=== PATIENT | female | born 1980 | race Caucasian/White ===

== ENCOUNTER 2016-09-15 01:04 | Inpatient (IN) | payer OTHER ==
[~2016-09-15] VITALS: Ht 177.8 cm; Wt 90.5 kg
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
--- NOTE | ~2016-09-15 | H ---
[facility] [place] [address] HISTORY AND PHYSICAL Name: ELIA JEFFERSON Room #: 443-P [facility] IN M.R.#: [id number] Admission: 09/15/16 Attend Phys: Zachary Quiroga MD Discharge: 09/23/16 Date of : 82 Report #: [id number] THIS REPORT FOR: //name// CC: Zachary Keith ATTENDING PHYSICIAN: Patricia Georges MD PRIMARY CARE PHYSICIAN: Olivia Keith MD CHIEF COMPLAINT: Epigastric abdominal pain, nausea, vomiting, diarrhea. HISTORY OF PRESENT ILLNESS: The patient is a 36-year-old female with a history of recurrent pancreatitis. She has been admitted here at [facility] at least 8 times within the last year as well as multiple other ER visits. She was just seen in the ER 2 days ago for some mild abdominal pain, but her lipase was normal, so she was discharged back to home. She does have a history of Crohn's, which is recently diagnosed as well. She does drink alcohol, she says she does not drink every day. She is fully aware that her pancreatitis is caused by alcohol. She recently lost her job, so she says she had been more stressed out as well as this new Crohn's diagnosis. She is now trying to deal with getting her COBRA, so she can start her Crohn's medication. She states that on Lilia, which was 3 days ago, she really did not feel that well and was having some crampy abdominal pain, but her pain significantly got worse. She did drink 2 glasses of wine on . The following night, she had a tall neck drink with whiskey and the following morning, which was Tuesday, she started having nausea, vomiting and worsening pain. She says the pain actually starts in her mid back and radiates around to her epigastric area. This is similar to her prior episodes of pancreatitis as well. She also started having multiple episodes of loose stools. She tried to drink water, but kept vomiting throughout the day; therefore, she came to the ER to be evaluated again. She has noticed that every time she has been admitted for pancreatitis, it is after eating shellfish. She has not had any further vomiting since arrival. She did receive multiple doses of Dilaudid in the ER and is now resting more comfortably, although she is rather anxious. PAST MEDICAL HISTORY: Pancreatitis, hypertension, anxiety. PAST SURGICAL HISTORY: Cholecystectomy, tonsillectomy, . ALLERGIES: TYLENOL WITH CODEINE, PENICILLIN, and TRAMADOL. HOME MEDICATIONS: Hydrocodone 5/325 one tab q. 6 hours p.r.n., Xanax 0.5 mg q. 8 hours p.r.n., nicotine patch daily, and Colace 100 mg daily, Pancreaze 1 capsule daily. SOCIAL HISTORY: The patient smokes half pack of cigarettes per day. She has [address] [address] HISTORY AND PHYSICAL Name: ELIA JEFFERSON Room #: 443-P [facility] IN M.R.#: [id number] Admission: 09/15/16 Attend Phys: Zachary Quiroga MD Discharge: 09/23/16 Date of : 84 Report #: [id number] been smoking for at least 16 years. She does smoke marijuana occasionally and she does report drinking every 2-3 days. Her last drink was 2 days ago in which she had tall glass of mixed drink of whiskey. She has also had beer. 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 She does live alone. FAMILY HISTORY: Negative for any GI problems. REVIEW OF SYSTEMS: A 12-point review of systems was reviewed with the patient, otherwise negative unless stated in the HPI. PHYSICAL EXAMINATION: GENERAL: The patient is an alert female in no acute distress. VITAL SIGNS: Temperature is 36.4, heart rate is 91, respirations 24, blood pressure 154/106, oxygen 100% on room air. HEENT: PERRLA. Sclerae is nonicteric. Oral mucosa is pink and dry. NECK: Supple, no JVD noted. CARDIOVASCULAR: Normal S1, S2. No murmurs, rubs or gallops. RESPIRATORY: Breath sounds are clear bilaterally. No wheezing or rhonchi. Breathing is nonlabored. ABDOMEN: Round and soft. She does have epigastric abdominal tenderness as well as positive bowel sounds. VASCULAR: She is moving all extremities equally. No focal neuro deficits noted. NEUROLOGIC: The patient is alert and oriented times 3. She is answering questions appropriately and follows commands ____ ambulate to the bathroom and she was steady on her feet. No focal weakness noted. SKIN: Intact. No rash or wounds. PSYCHIATRIC: The patient is somewhat anxious and restless in moving around, rubbing her stomach in pain. LABORATORY DATA AND DIAGNOSTICS: WBC is 14.9, hemoglobin 14.8 and platelets 356, alcohol level is less than 10. Sodium 140, potassium 3.9, BUN 13, creatinine 0.9, glucose is 157. ALT 87, ALT 137, and lipase is 1938. ASSESSMENT AND PLAN: 1. Recurrent pancreatitis, again alcohol induced. She was encouraged again to stop drinking. 2. We will add IV fluids, continue antiemetics and pain control. We will keep her n.p.o. and repeat lipase in the morning. 3. Hypertension, blood pressure is stable. We do need to hold her blood pressure medications while n.p.o. Continue to monitor. 4. Recent diagnosis of Crohn's disease. The patient does not know her current medications for Crohn's that she is supposed to start, but has not due to losing her job and insurance. She plans to follow with Dr. Davis with Gastroenterology, outpatient. [facility] [address] [place] [address] HISTORY AND PHYSICAL Name: ELIA JEFFERSON Room #: 443-P [facility] IN .R.#: [id number] Admission: 09/15/16 Attend Phys: Zachary Quiroga MD Discharge: 09/23/16 Date of : 82 Report #: [id number] 5. Alcohol abuse. The patient was encouraged to quit drinking. She will be monitored for any signs of alcohol withdrawal, although she says she does not drink daily. 6. Tobacco abuse. The patient has been advised to quit, add a nicotine patch. 7. Deep venous thrombosis prophylaxis, place sequential compression devices. 8. Uncomplicated urinary tract infection. Since she does have some mild leukocytosis, we will go ahead and send urine for culture and start Rocephin. We will continue to follow the patient closely throughout the hospitalization and make changes based on clinical status. <ELECTRONICALLY SIGNED> By: JACKIE Briseno 09/24/16 0646 0723 2 JACKIE Briseno /nt
[~2016-09-15 01:04] MED LIST: AMBIEN 5 MG TABL5 M1 PO; B-COMPLEX PLUS1 EACH PO; CENTRUM SILVER1 EAC2; CLARITIN10 MG PO; COLACE 100 MG100 MG PO; CREON 10 CAPSUL1 CA1 PO; FLAGYL500 MG PO; GARLIC OIL1 EACH PO; HYDROCODON-ACE1 EAC7 PO; HYDROCODONE-AP1 EAC6 PO; METOPROLOL TART25 MG PO; NEURONTIN600 MG PO; NICOTINE TRANSD21 M1 TRANSDERM; NORCO 5-325 TA1 EACH PO; ONDANSETRON HCL4 M2 PO; PANTOPRAZOLE SO40 M1 PO; PERCOCET PO; PHENERGAN 25 MG25 M1 PO; PREDNISONE 20 M20 MG PO; PROBIOTIC1 EAC1 PO; PROZAC 20 MG20 MG PO; TOPROL XL25 MG PO; UNICOMPLEX M TA1 TA1 PO; VITAMIN D1000 UNI1 PO; VITAMINC500 PO; XANAX 0.5 MG0.5 MG PO; ZENPEP DR 10,01 EACH PO; ZOFRAN ODT4 MG PO
[2016-09-15 01:05] VITALS: BP 154/106
[2016-09-15] MEDS ORDERED: HYDROCODONE-APA1 TA1 PO (01:26)
[2016-09-15 01:47] LABS: ABSOLUTE NEUTROPHILS 8.9 thou/uL (1.4-8.2); BASOPHILS 0.5 % (0.0-2.0); EOSINOPHILS 1.6 % (0.0-3.0); HEMATOCRIT 44.3 % (37.0-47.0); HEMOGLOBIN 14.8 gm/dL (12.0-15.0); LYMPHOCYTES 29.3 % (24.0-44.0); MANUAL DIFF NO; MCHC 33.3 % (28.0-37.0); MCV 95.9 fL (80.0-100.0); PLATELET COUNT 356 thou/uL (150-400); POLYS 59.6 % (36.0-66.0); RBC 4.62 mil/uL (4.20-5.00); RDW 15.5 % (10.5-14.5); WBC 14.9 thou/uL (4.0-11.0)
[2016-09-15 02:05] LABS: CALCIUM 8.3 mg/dL (8.5-10.1); CREATININE 0.9 mg/dL (0.6-1.3); POTASSIUM 3.9 mmol/L (3.5-5.1)
[2016-09-15 02:10] LABS: ALBUMIN 3.6 g/dL (3.4-5.0); TOTAL BILIRUBIN 0.7 mg/dL (<0.1-1.0); TOTAL PROTEIN 6.5 g/dL (6.4-8.2)
[2016-09-15 02:42] VITALS: BP 153/95
[2016-09-15 04:12] LABS: URINE BILIRUBIN NEGATIVE (Negative); URINE BLOOD 3+ (Negative); URINE COLOR BROWN; URINE GLUCOSE-RANDOM* NEGATIVE (Negative); URINE KETONES NEGATIVE (Negative); URINE LEUKOCYTES-REFLEX NEGATIVE (Negative); URINE PROTEIN (DIPSTICK) 2+ (Negative); URINE SPECIFIC GRAVITY >= 1.030 (1.003-1.035)
[2016-09-15 04:18] LABS: SQUAMOUS >10 Many /LPF (0-3)
[2016-09-15 04:19] LABS: URINE RBC >20 Many /HPF (0-2)
[2016-09-15 04:20] LABS: CASTS None Seen /LPF (None Seen); CRYSTALS None Seen /LPF (None Seen); URINE WBC-REFLEX 0-5 Rare /HPF (0-5)
[2016-09-15 06:50] VITALS: BP 130/71
[2016-09-15 08:00] VITALS: BP 167/94
[2016-09-15 16:02] VITALS: BP 168/95
[2016-09-15 19:30] VITALS: BP 173/91
[2016-09-16 04:30] VITALS: BP 178/102
[2016-09-16 06:02] LABS: HEMATOCRIT 38.3 % (37.0-47.0); MCH 32.1 pg (26.0-34.0); MCHC 32.9 % (28.0-37.0); MCV 97.4 fL (80.0-100.0); RBC 3.93 mil/uL (4.20-5.00); RDW 15.3 % (10.5-14.5)
[2016-09-16 06:05] LABS: HEMOGLOBIN 12.6 gm/dL (12.0-15.0)
[2016-09-16 06:18] LABS: CREATININE 0.7 mg/dL (0.6-1.3); POTASSIUM 3.5 mmol/L (3.5-5.1)
[2016-09-16 08:00] VITALS: BP 161/94
[2016-09-16 16:00] VITALS: BP 181/110
[2016-09-16 20:32] VITALS: BP 161/122
[2016-09-16 23:33] VITALS: BP 149/100
[2016-09-17 04:11] VITALS: BP 137/91
[2016-09-17 05:18] LABS: ABSOLUTE NEUTROPHILS 8.6 thou/uL (1.4-8.2); BASOPHILS 0.5 % (0.0-2.0); EOSINOPHILS 2.3 % (0.0-3.0); HEMATOCRIT 36.3 % (37.0-47.0); HEMOGLOBIN 12.2 gm/dL (12.0-15.0); LYMPHOCYTES 14.5 % (24.0-44.0); MCHC 33.7 % (28.0-37.0); MCV 95.2 fL (80.0-100.0); MONOCYTES 10.9 % (1.0-8.0); PLATELET COUNT 217 thou/uL (150-400); POLYS 71.8 % (36.0-66.0); RBC 3.81 mil/uL (4.20-5.00); RDW 15.3 % (10.5-14.5)
[2016-09-17 05:20] LABS: MANUAL DIFF NO
[2016-09-17 05:32] LABS: CALCIUM 8.1 mg/dL (8.5-10.1); CREATININE 0.7 mg/dL (0.6-1.3); MAGNESIUM 1.4 mg/dL (1.8-2.4); POTASSIUM 3.3 mmol/L (3.5-5.1); TOTAL BILIRUBIN 1.1 mg/dL (<0.1-1.0); TOTAL PROTEIN 5.9 g/dL (6.4-8.2)
[2016-09-17 08:36] VITALS: BP 145/103
[2016-09-17 12:25] VITALS: BP 128/85
[2016-09-17 16:00] VITALS: BP 133/80
[2016-09-17 16:20] LABS: MAGNESIUM 2.2 mg/dL (1.8-2.4); POTASSIUM 3.7 mmol/L (3.5-5.1)
[2016-09-17 19:18] VITALS: BP 136/88
[2016-09-18 06:32] LABS: ALBUMIN 2.6 g/dL (3.4-5.0); CALCIUM 8.1 mg/dL (8.5-10.1); CREATININE 0.7 mg/dL (0.6-1.3); MAGNESIUM 1.8 mg/dL (1.8-2.4); POTASSIUM 3.2 mmol/L (3.5-5.1); TOTAL BILIRUBIN 0.9 mg/dL (<0.1-1.0); TOTAL PROTEIN 5.6 g/dL (6.4-8.2)
[2016-09-18 08:00] VITALS: BP 126/63
[2016-09-18 12:00] VITALS: BP 119/66
[2016-09-18 16:00] VITALS: BP 120/75
[2016-09-18 19:56] VITALS: BP 119/70
[2016-09-19 06:34] VITALS: BP 117/74
[2016-09-19 08:00] VITALS: BP 114/71
[2016-09-19 16:00] VITALS: BP 135/88
[2016-09-19 21:58] VITALS: BP 147/101
[2016-09-20 04:27] LABS: HEMATOCRIT 29.5 % (37.0-47.0); MCH 31.8 pg (26.0-34.0); MCHC 32.9 % (28.0-37.0); MCV 96.7 fL (80.0-100.0); RBC 3.05 mil/uL (4.20-5.00); RDW 15.3 % (10.5-14.5); WBC 13.7 thou/uL (4.0-11.0)
[2016-09-20 04:38] LABS: HEMOGLOBIN 9.7 gm/dL (12.0-15.0)
[2016-09-20 04:44] LABS: CALCIUM 8.7 mg/dL (8.5-10.1); CREATININE 0.7 mg/dL (0.6-1.3); MAGNESIUM 1.7 mg/dL (1.8-2.4); POTASSIUM 3.8 mmol/L (3.5-5.1)
[2016-09-20 08:00] VITALS: BP 173/101
[2016-09-20 12:00] VITALS: BP 156/95
[2016-09-20 14:03] LABS: AMYLASE 67 U/L (25-115)
[2016-09-20 17:00] VITALS: BP 180/104
[2016-09-20 17:24] LABS: ABG SAMPLE TYPE ARTERIAL; BE(vivo) 1.1 mmol/L (-2 to +3); HCO3 24.2 mmol/L (22.0-26.0); LACTATE 0.87 mmol/L (0.5-2.0); O2(CT) 14.1 mL/dL (15.0-23.0); O2Hb 93.2 % (92.0-98.0); PCO2 32.8 mmHg (35.0-45.0); PO2 63.8 mmHg (80.0-100.0); pH 7.485 (7.360-7.450); sO2 94.1 % (92.0-98.0); tCO2 25.2 mmol/L (24.0-30.0)
[2016-09-20 17:25] LABS: STICK SITE L.RADIAL
[2016-09-20 18:22] VITALS: BP 150/92
[2016-09-20 20:10] VITALS: BP 142/93
[2016-09-20 23:20] VITALS: BP 129/79
[2016-09-21 03:20] VITALS: BP 138/85
[2016-09-21 06:10] LABS: CALCIUM 8.8 mg/dL (8.5-10.1); CREATININE 0.6 mg/dL (0.6-1.3); POTASSIUM 3.2 mmol/L (3.5-5.1)
[2016-09-21 06:14] LABS: HEMATOCRIT 33.2 % (37.0-47.0); HEMOGLOBIN 10.7 gm/dL (12.0-15.0); MCH 31.4 pg (26.0-34.0); MCHC 32.2 % (28.0-37.0); MCV 97.6 fL (80.0-100.0); RBC 3.4 mil/uL (4.20-5.00); WBC 14.7 thou/uL (4.0-11.0)
[2016-09-21 08:00] VITALS: BP 145/83
[2016-09-21 12:00] VITALS: BP 132/81
[2016-09-21 16:00] VITALS: BP 158/106
[2016-09-21 20:20] VITALS: BP 137/90
[2016-09-22 04:30] VITALS: BP 122/68
[2016-09-22 06:41] LABS: CALCIUM 8.4 mg/dL (8.5-10.1); CREATININE 0.6 mg/dL (0.6-1.3); MAGNESIUM 1.7 mg/dL (1.8-2.4); POTASSIUM 3.5 mmol/L (3.5-5.1)
[2016-09-22 07:25] VITALS: BP 141/87
[2016-09-22 11:32] VITALS: BP 137/80
[2016-09-22 15:20] VITALS: BP 127/84
[2016-09-22 19:25] VITALS: BP 147/94
[2016-09-23 03:30] VITALS: BP 150/85
[2016-09-23 07:03] LABS: HEMATOCRIT 32.3 % (37.0-47.0); HEMOGLOBIN 10.8 gm/dL (12.0-15.0); MCH 31.9 pg (26.0-34.0); MCHC 33.4 % (28.0-37.0); MCV 95.3 fL (80.0-100.0); RBC 3.39 mil/uL (4.20-5.00); RDW 15.5 % (10.5-14.5); WBC 9.9 thou/uL (4.0-11.0)
[2016-09-23 07:15] LABS: CALCIUM 8.3 mg/dL (8.5-10.1); CREATININE 0.6 mg/dL (0.6-1.3); POTASSIUM 3.2 mmol/L (3.5-5.1)
[2016-09-23 08:38] VITALS: BP 151/99
[2016-09-23 11:53] VITALS: BP 136/94
[2016-09-23] MEDS ORDERED: CYCLOBENZAPRINE10 MG PO (12:12)
[2016-09-23] MEDS ORDERED: VANCOMYCIN100 MG/ML PO (12:12)
[2016-09-23] MEDS ORDERED: WELLBUTRIN SR150 MG PO (12:13)
[2016-09-23 14:02] VITALS: BP 136/94
[2016-09-23 14:07] VITALS: BP 136/94
== END 2016-09-23 15:47 | disposition home or self-care (01) | DRG 439 ==
LOC: ER 01:04 → EROBS 02:20 → 4S 02:20
PROVIDERS: Emergency Medicine; Hospitalist; Internal Medicine; Nurse Practitioner; Nurse Practitioner Acute Care; Nurse Practitioner Family
DX: K85.20 Alcohol induced acute pancreatitis without necrosis or infection (principal); N39.0 Urinary tract infection, site not specified; A04.7 Enterocolitis due to Clostridium difficile; F33.1 Major depressive disorder, recurrent, moderate; K50.10 Crohn's disease of large intestine without complications; D64.9 Anemia, unspecified; R41.0 Disorientation, unspecified; F41.0 Panic disorder [episodic paroxysmal anxiety]; D72.829 Elevated white blood cell count, unspecified; K86.0 Alcohol-induced chronic pancreatitis; M54.9 Dorsalgia, unspecified; Y90.9 Presence of alcohol in blood, level not specified; F17.210 Nicotine dependence, cigarettes, uncomplicated; F10.10 Alcohol abuse, uncomplicated; F41.9 Anxiety disorder, unspecified; I10 Essential (primary) hypertension; Z90.49 Acquired absence of other specified parts of digestive tract; Z98.890 Other specified postprocedural states; Z88.6 Allergy status to analgesic agent; Z88.0 Allergy status to penicillin; Z71.41 Alcohol abuse counseling and surveillance of alcoholic; Z71.6 Tobacco abuse counseling
CPT/HCPCS: 10100; 27001

== ENCOUNTER → 2017-02-10 | Outpatient (CLI) | payer OTHER ==
[~2017-02-10] MED LIST changes: +CYCLOBENZAPRINE10 MG PO; +HYDROCODONE-APA1 TA1 PO; +NEURONTIN 300300 M1 PO; +TYLENOL325 MG PO; +VANCOMYCIN100 MG/ML PO; +VITAMIN B-1100 M1 PO; +WELLBUTRIN SR150 MG PO
== END ==
LOC: RAD 02-08 09:19 → CAT 07:32
DX: M51.26 Other intervertebral disc displacement, lumbar region (principal); M54.16 Radiculopathy, lumbar region

== ENCOUNTER → 2017-02-28 | Outpatient (CLI) | payer OTHER ==
[~2017-02-28] VITALS: Ht 177.8 cm; Wt 90.7 kg
[~2017-02-28] MED LIST changes: +ALL DAY ALLERGY10 M2 PO; +CARISOPRODOL 3350 MG PO; +FISH OIL 1,2001 EAC6 PO; +VITAMIN D1000 UNIT PO; +[UNRECOGNIZED DRUG - OTHER]
--- NOTE | ~2017-02-28 | HPC ---
[facility] [place] [address] PAIN MANAGEMENT CONSULTATION Name: ELIA JEFFERSON Room #: REG JUAN Barron#: [id number] Admission: 02/28/17 Attend Phys: Francisco Keita DO Discharge: Date of : 82 Report #: [id number] THIS REPORT FOR: //name// CC: RAE Keita DATE OF SERVICE: 02/28/2017 The patient is a 36-year-old female, seen in consultation at the request of Dr. Keith for evaluation of acute on chronic mid back pain. The patient notes she has had chronic back pain for many years, and in September or October, she had acute exacerbation of pain in the mid thoracic area. Did physical therapy for a short course. Apparently, this exacerbated some low back pain, was referred to Dr. Skyler Ramirez, who did bilateral L5-S1 transforaminal epidural steroid injections with some efficacy in radicular pain, but no change in the mid back. She says she sought post acute care nurse practitioner with some efficacy. She takes multiple central acting agents including Soma 350 three times a day and Xanax 0.5 t.i.d. for anxiety. She had also been on opiates over time. I did do a K-TRACS noting she had had a prescription for Percocet 5/325, 20 tablets filled on 02/01/2017. The only other [place] prescription was a 07/15/2016 prescription for hydrocodone 5/325, 30 tablets. We did check with the pharmacy downstairs, where the patient states she gets most of her prescriptions, she did have a prescription filled on 02/09/2016 for 120 oxycodone 10, prescription for hydrocodone 7.5/325, 30 tablets on 02/02/2016. The patient was admitted to [facility] for pancreatitis on 09/15/2016 through 10/03/2016. Alcohol had exacerbated her pancreatitis. Urine drug screen ____ was positive for marijuana. Prior urine drug screen on 07/17/2016 was positive for marijuana metabolites as well (THC). Currently, the patient notes pain in her back, it is exacerbated with standing or long car rides; it gets relieved with lying recumbent with ice. She describes continuous, steady, constant, shooting, aching, sharp, stabbing, throbbing pain that she rates anywhere from 7 to 9 on a 0-10 Visual Analog Scale. She denies any radicular symptoms or myelopathic symptoms. REVIEW OF SYSTEMS: Complete review of systems attached to chart, was gone over with the patient. She is single. She smokes, which she has for 20 years, down to half pack a day, continues to smoke. She states she still drinks alcohol socially. She states she uses marijuana recreationally, she states it has "replaced her alcohol use." Further review of systems notes hypertension for which she takes metoprolol. Again, chronic pancreatitis, currently taking Zenpep, Pennsaid, gabapentin [address] [address] PAIN MANAGEMENT CONSULTATION Name: ELIA JEFFERSON Room #: REG JUAN Barron#: [id number] Admission: 02/28/17 Attend Phys: Francisco Keita DO Discharge: Date of : 82 Report #: [id number] mg two tablets b.i.d. longstanding for back pain, bupropion, Xanax, and Soma as noted in chief complaint. She has used short-acting opiates off and on over time. She works as a customer relations cancer district manager. She does a fair bit of traveling, driving in her car from various work sites. Pain impact score averages 46/70. PHYSICAL EXAMINATION: GENERAL: Reveals a 5 feet 10 and 200-pound female, BMI is 28.7 kilograms per meter squared. VITAL SIGNS: Blood pressure is 136/68, pulse 60, and respirations 20. NEUROLOGIC: Cranial nerves 2-12 are grossly intact. HEENT: Pupils are equal, reactive to light and accommodation. Extraocular muscles are intact. NECK: Cervical range of motion is full, though extension exacerbates some mid back pain. EXTREMITIES: Upper extremity strength is preserved. Deep tendon reflexes are symmetric for the biceps, triceps, and brachioradialis. Hand grasp is symmetric. HEART: Regular and rhythmical without murmur. LUNGS: Do show rhonchi scattered bilaterally. The patient states she has a "summer cold," has had some recent cough and rhinitis. The patient rises from chair easily. Gait is tandem. Lower extremity strength is preserved. Lumbar flexion is good to 90+ degrees. Deep tendon reflexes are symmetric. Straight leg raise negative. She does have discrete tenderness about the T7-T9 mid thoracic area. No significant radicular issues are noted. That is the centre of pain, perhaps 2 cm in diameter in this area. No skin changes noted. Abdominal exam was unremarkable. She has a little hyperactive borborygmi; otherwise, abdomen is nontender. No masses are noted. DIAGNOSTIC STUDIES: Include a CT myelogram of the lumbar spine from 02/10/[address] Ramirez, does note diffuse disk bulge at L4-L5 with a central left focal disk at L5-S1. ASSESSMENT: Thoracic spine pain, myofascial pain component, axial back pain by history in a patient with chronic anxiety on two benzodiazepine-type agents (Soma 350 t.i.d. metabolized to meprobamate and Xanax 0.5 t.i.d.). History of recreational marijuana use, which is ongoing. The patient tells me the last time she smoked marijuana was this past weekend. Again, history of two urine drug screens positive for marijuana on 07/17/2016 and 08/20/2015. [address] [address] PAIN MANAGEMENT CONSULTATION Name: ELIA JEFFERSON Room #: REG JESSICALulu Barron#: [id number] Admission: 02/28/17 Attend Phys: Francisco Keita DO Discharge: Date of : 82 Report #: [id number] Long discussion with the patient today about therapeutic options. I would eschew opiate analgesics in this patient. She is on multiple central acting agents and she is using recreational marijuana. All of these agents can have additive central acting depressant effects. Again, chronic usage of short-term opiates is mostly contraindicated for abdominal and/or axial back pain without specific pathology. RECOMMENDATIONS: 1. X-rays of the thoracic spine. 2. Follow up after x-rays for re-evaluation. Consideration for trigger point injection at that time. Thank you for allowing me to participate in the patient's care. We will try and help manage her mid thoracic pain, though again I do not think she is a good candidate for long-term opiate analgesics. <ELECTRONICALLY SIGNED> By: Francisco Keita DO 03/02/17 1252 1035 1254 Francisco Keita DO /nt
[2017-02-28 09:16] VITALS: BP 136/68
== END | disposition home or self-care (01) ==
LOC: PAIN 06:36
DX: M54.6 Pain in thoracic spine (principal); M79.1 Myalgia; F41.9 Anxiety disorder, unspecified; F17.210 Nicotine dependence, cigarettes, uncomplicated; D64.9 Anemia, unspecified; I10 Essential (primary) hypertension; F32.9 Major depressive disorder, single episode, unspecified; Z90.49 Acquired absence of other specified parts of digestive tract

== ENCOUNTER 2017-03-02 22:12 | Emergency (ER) | payer OTHER ==
[~2017-03-02] VITALS: Ht 177.8 cm; Wt 90.7 kg
[2017-03-07] MEDS ORDERED: OXYCODONE HCL10 MG PO (11:09)
[2017-03-07] MEDS ORDERED: OXYCODONE-ACET1 EACH PO (11:10)
== END 2017-03-03 01:04 | disposition home or self-care (01) ==
LOC: ER 22:12
DX: F10.120 Alcohol abuse with intoxication, uncomplicated (principal); I10 Essential (primary) hypertension; F41.9 Anxiety disorder, unspecified; F32.9 Major depressive disorder, single episode, unspecified; Z90.49 Acquired absence of other specified parts of digestive tract; Z88.5 Allergy status to narcotic agent; Z88.0 Allergy status to penicillin; F17.210 Nicotine dependence, cigarettes, uncomplicated

== ENCOUNTER → 2017-03-07 | Outpatient (CLI) | payer OTHER ==
[~2017-03-07] VITALS: Ht 177.8 cm; Wt 93.9 kg
[~2017-03-07] MED LIST changes: +OXYCODONE HCL10 MG PO; +OXYCODONE-ACET1 EACH PO
--- NOTE | ~2017-03-07 | HPC ---
[facility] [place] [address] PAIN MANAGEMENT CONSULTATION Name: ELIA JEFFERSON Room #: REG JUAN Barron#: [id number] Admission: 03/07/17 Attend Phys: Francisco Keita DO Discharge: Date of : 82 Report #: [id number] THIS REPORT FOR: //name// CC: Olivia Keita The patient is a 36-year-old female who was seen one time in consultation 02/28/2017, diagnosed with myofascial pain, component of thoracic radiculopathy. The patient has had prior L5-S1 transforaminal epidural injections for lumbar radicular symptoms by Dr. Ramirez with some transient efficacy. When I saw her last, she was having increasing myofascial pain. We talked about doing trigger point injections today. I did order thoracic x-rays, which were accomplished 02/28/2017 which did show no pathology in the thoracic spine itself. Since we last saw her, she was admitted to the ER 03/02/2017, she was admitted due to acute intoxication. She returns to pain clinic today noting pain in the mid back remains problematic, right greater than left. She has trigger points in the thoracic paravertebral muscles overlying the latissimus dorsi bilaterally, right more than left. Some diffuse tenderness across the low back compatible with her symptoms prior treated with bilateral L5-S1 transforaminal epidural injections. L5 radicular pain pattern, though this is eclipsed by her myofascial back pain. ASSESSMENT: Thoracic myofascial pain. RECOMMENDATIONS: Trigger point injections today. Patient cautioned about pneumothorax and/or infection. Follow up in 2 weeks for reevaluation. Consideration for repeat trigger point injection versus bilateral L5-S1 transforaminal epidural injection for the low back and radicular pain component. ASSESSMENT: Symptomatic myofascial pain. PROCEDURE: After written informed consent was obtained, the patient was placed in prone position. Skin overlying the back was cleansed with alcohol. Using a 25-gauge needle, 40 mg triamcinolone plus 5 mL of 0.5% preservative-free bupivacaine plus 5 mL of 1.5% preservative-free Xylocaine with 1:200,000 epinephrine was injected into and around the four discrete muscle groups with trigger points including the right mid thoracic paravertebral muscle and overlying latissimus dorsi and left mid thoracic paravertebral muscle and overlying latissimus dorsi. All needles removed. The area was cleansed, [facility] [address] [place] [address] PAIN MANAGEMENT CONSULTATION Name: ELIA JEFFERSON Room #: REG CLI Anderson#: [id number] Admission: 03/07/17 Attend Phys: Francisco Keita DO Discharge: Date of : 82 Report #: [id number] Band-Aids applied. The patient monitored for an appropriate period of time, discharged in good and stable condition. By: 1218 [id number] Francisco Keita DO /annia
[2017-03-07 10:58] VITALS: BP 156/76
== END | disposition home or self-care (01) ==
LOC: PAIN 06:52
DX: M79.1 Myalgia (principal); M54.6 Pain in thoracic spine; M54.14 Radiculopathy, thoracic region; F17.210 Nicotine dependence, cigarettes, uncomplicated; I10 Essential (primary) hypertension; G43.909 Migraine, unspecified, not intractable, without status migrainosus; K85.90 Acute pancreatitis without necrosis or infection, unspecified; F41.9 Anxiety disorder, unspecified; F10.10 Alcohol abuse, uncomplicated; Z88.0 Allergy status to penicillin; Z98.890 Other specified postprocedural states; Z88.8 Allergy status to other drugs, medicaments and biological substances

== ENCOUNTER → 2017-04-11 | Outpatient (CLI) | payer OTHER ==
[~2017-04-11] VITALS: Ht 177.8 cm; Wt 87.7 kg
[~2017-04-11] MED LIST changes: +VALIUM5 MG PO; +multivitamin
--- NOTE | ~2017-04-11 | HPC ---
[facility] [place] [address] PAIN MANAGEMENT CONSULTATION Name: ELIA JEFFERSON Room #: REG JUAN Luo.#: [id number] Admission: 04/11/17 Attend Phys: Francisco Keita DO Discharge: Date of : 82 Report #: [id number] THIS REPORT FOR: //name// CC: Olivia Keita The patient is a 36-year-old female, initially seen in consultation on 02/28/2017, diagnosed with symptomatic axial back pain, lumbar radiculopathy, myofascial pain component. She had trigger point injections in followup on 03/07/2017. We sought authorization for bilateral L5-S1 transforaminal epidural injections for lumbar radicular pain. She prior had lumbar L5-S1 transforaminal epidural injections by Dr. Ramirez with transient efficacy prior to coming to our clinic. The patient presents to pain clinic today after prior authorization for the aforementioned injection. She is complaining that the pain is 6/10, primarily in a bilateral L5 distribution. Her upper back feels better after trigger point injections in the last visit by . ASSESSMENT: Symptomatic lumbar radiculopathy. RECOMMENDATION: 1. Follow up in 4 weeks to evaluate efficacy of intervention therapy. Continue ice and stretch to the mid and low back. 2. We will not be writing for any medications for the patient due to history of prior ethanol abuse, multiple urine was positive for THC. PROCEDURE NOTE: Bilateral L5-S1 transforaminal epidural injection under fluoroscopy. PROCEDURE: 1. Left L5-S1 transforaminal epidural injection under fluoroscopy. PROCEDURE NOTE: After both written and informed consent was obtained including risk of spinal cord damage, infection, increased pain and paralysis, the patient agreed to proceed. The patient was taken to the fluoroscopy suite, placed in a prone position with appropriate abdominal bolstering. After sterile prep with ChloraPrep and sterile drape, a skin wheal with 1% Xylocaine was raised. A 22 gauge 4-1/2 inch epidural Tuohy needle was inserted. From an oblique approach into the posterior-superior aspect of the left L5-S1 neural foramen with continuous pressure on the glass syringe plunger for loss of resistance. Glass syringe was filled with 2 cc of 0.1 Xylocaine. The glass loss of resistance syringe was removed. A low volume extension tubing was connected, negative aspiration was accomplished for cerebrospinal fluid or blood. 1 mL of Omnipaque was injected which showed spread both within the epidural space and laterally along the nerve root. This was followed with 40 mg of triamcinolone plus 1 mL of 1.5% preservative-free Xylocaine. Needle was partially withdrawn, 0.5 mL of [facility] [address] [place] [address] PAIN MANAGEMENT CONSULTATION Name: ELIA JEFFERSON Room #: REG JUAN Barron#: [id number] Admission: 04/11/17 Attend Phys: Francisco Keita DO Discharge: Date of : 82 Report #: [id number] Xylocaine was injected to clear the needle and the needle was removed. The area was cleansed, band-aid was applied. The patient was allowed to ambulate to the recovery room, discharged in good and stable condition. 2. Right L5-S1 transforaminal epidural injection under fluoroscopy. PROCEDURE NOTE: After both written and informed consent was obtained including risk of spinal cord damage, infection, increased pain and paralysis, the patient agreed to proceed. The patient was taken to the fluoroscopy suite, placed in a prone position with appropriate abdominal bolstering. After sterile prep with ChloraPrep and sterile drape, a skin wheal with 1% Xylocaine was raised. A 22 gauge 4-1/2 inch epidural Tuohy needle was inserted. From an oblique approach into the posterior-superior aspect of the right L5-S1 neural foramen with continuous pressure on the glass syringe plunger for loss of resistance. Glass syringe was filled with 2 cc of 0.1 Xylocaine. The glass loss of resistance syringe was removed. A low volume extension tubing was connected, negative aspiration was accomplished for cerebrospinal fluid or blood. 1 mL of Omnipaque was injected which showed spread both within the epidural space and laterally along the nerve root. This was followed with 40 mg of triamcinolone plus 1 mL of 1.5% preservative-free Xylocaine. Needle was partially withdrawn, 0.5 mL of Xylocaine was injected to clear the needle and the needle was removed. The area was cleansed, band-aid was applied. The patient was allowed to ambulate to the recovery room, discharged in good and stable condition. By: 1728 0055 Francisco Keita DO /annia
[2017-04-11 14:20] VITALS: BP 120/86
== END | disposition home or self-care (01) ==
LOC: PAIN 03-31 07:28
DX: M54.16 Radiculopathy, lumbar region (principal); M79.1 Myalgia; F17.210 Nicotine dependence, cigarettes, uncomplicated

== ENCOUNTER → 2017-05-12 | Outpatient (CLI) | payer OTHER ==
[~2017-05-12] VITALS: Ht 177.8 cm; Wt 88.4 kg
[~2017-05-12] MED LIST changes: +BUPROPION HCL150 M1 PO; +CYMBALTA60 MG PO; +METFORMIN HCL500 MG PO; +NICOTINE1 EAC1 TD; +TRINATE TABLET1 TAB PO
--- NOTE | ~2017-05-12 | HPC ---
[facility] [place] [address] PAIN MANAGEMENT CONSULTATION Name: RONNYELIA CALLAHAN Room #: REG Lulu Luo.#: [id number] Admission: 05/12/17 Attend Phys: Francisco Keita DO Discharge: Date of : 82 Report #: [id number] THIS REPORT FOR: //name// CC: Olivia Keita The patient is a 36-year-old female last seen in pain clinic on 04/11/2017. We proceeded to perform bilateral L5-S1 transforaminal epidural injection at that time. She returns to the pain clinic today for prolonged visit was seen from 10:15-10:40. Greater than 50% of time spent counseling the patient. The patient has ongoing axial back pain, primarily mid back and low back. X-rays were obtained on 02/28/2017. Three views of the thoracic spine showing really no osseous pathology. She has a history of some pancreatitis, though this seems to not be associated with current pain. She has a history of ethanol abuse in the past. She has quit drinking; however, she does use marijuana on a fairly regular basis. She states that marijuana has "substitute" for the ethanol. She is aware that because of this we are very concerned about writing for any controlled narcotic medications. She does use Xanax and Soma ongoing for chronic anxiety concerns, Xanax 0.5 mg q. 8 hours, Soma 350 mg t.i.d. for spasm with nominal efficacy. Does use Wellbutrin 150 mg b.i.d., sustained release. She has tried to quit smoking and uses the nicotine patch, though still is using about half pack of cigarettes a day. The patient notes her pain is an 8 on a VAS, primarily in the upper back that has been going on for 2 years, feels like she is constantly being punched in the back. Diffuse low back pain continues, there is fortunately no significant lumbar radicular symptoms noted. I have performed trigger point injections early on when I saw the patient in February with transient efficacy. PHYSICAL EXAMINATION: Shows a 36-year-old female, BMI is 28 kilograms per meter squared. Blood pressure 127/83, pulse 72, respirations 16. Alert and oriented to person, place and time, judged to be a reasonable historian. Cervical range of motion is full. Flexion exacerbates the pain, tenderness in the thoracic paravertebral muscles about T7-T10. No discrete trigger points are noted. Diffuse low back tenderness in the lumbar area, though again no discrete trigger points are noted. Range of motion is actually relatively full. Lower extremity strength is preserved. ASSESSMENT: Lumbar radiculopathy, axial back pain, history of pancreatitis with primarily myofascial pain component, requiring complex medication management due to ongoing issues with benzodiazepine use (Xanax and Soma) and a history of ethanol habituation in the past and ongoing marijuana use. RECOMMENDATIONS: 1. Counseled the patient regarding smoking nicotine cessation and encouraged discontinuation of marijuana use as it is relatively uncontrolled substance and [address] [address] PAIN MANAGEMENT CONSULTATION Name: RONNYELIA Room #: REG JUAN Barron#: [id number] Admission: 05/12/17 Attend Phys: Francisco Keita DO Discharge: Date of : 82 Report #: [id number] she has ongoing anxiety, marijuana use has been associated with increased anxiety paranoia. 2. After a long discussion with the patient, we have elected to simply trial a fibromyalgia type medication, Cymbalta 60 mg 1 a day. There is a possible interaction with Cymbalta and Wellbutrin noting that both can slow hepatic metabolism and show modest increase in therapeutic dose of both agents; however, given the moderate dose of both agents, I feel this is likely noted to be inconsequential. I did suggest that the patient should abort use of the Cymbalta if she notes any anxiety, flushing or swelling. I have taken the liberty of writing for 60 mg of Cymbalta, 30 tablets with 1 refill. I told her takes 4-6 weeks to show efficacy. I would like to see her back in 6 weeks for reevaluation. At that time, we will plan on doing trigger point injections if needed in the mid back area and immediately get the patient into physical therapy. I have written for and encouraged physical therapy at all her visits, she has never move forward with this. I did suggest that she hold off on PT at this time, but once we get therapeutic load of serotonin and norepinephrine reuptake inhibiting agent Cymbalta on board, which should help with some of the fibromyalgia/myofascial type pain. I will perform trigger point injections, and we would at that point strongly recommend physical therapy to include range of motion and yoga classes. The patient notes that her mother has been trying to get her into yoga class for some time, her mother does take a yoga class already. I suggested she consider that as her physical therapy. We will see her back in 6 weeks for reevaluation. Discharged in good and stable condition after a 25-minute visit spent counseling the patient. <ELECTRONICALLY SIGNED> By: Francisco Keita DO 05/13/17 1225 [id number] [id number] Francisco Keita, DO /nt
[2017-05-12 10:17] VITALS: BP 127/83
== END ==
LOC: PAIN 06:56
DX: M54.16 Radiculopathy, lumbar region (principal)

== ENCOUNTER → 2017-06-20 | Outpatient (CLI) | payer OTHER ==
[~2017-06-20] VITALS: Ht 180.3 cm; Wt 91.2 kg
[~2017-06-20] MED LIST changes: +VANCOMYCIN HCL125 MG PO
--- NOTE | ~2017-06-20 | HPC ---
[facility] [address] [address] PAIN MANAGEMENT CONSULTATION Name: ELIA JEFFERSON Room #: REG [facility] Valerio.#: [id number] Admission: 06/20/17 Attend Phys: Francisco Keita DO Discharge: Date of : 82 Report #: [id number] THIS REPORT FOR: //name// CC: Olivia Keita DATE OF SERVICE: 06/20/2017 DATE OF SERVICE: 06/20/2017 HISTORY OF PRESENT ILLNESS: The patient tablet is a 36-year-old female, last seen on 05/12/2017. She has a component of Axial back pain, history of pancreatitis, nicotine habituation and myofascial pain. Medication management is complicated by the fact the patient had been habituated to ethanol. She did quit drinking to her credit when she was diagnosed with pancreatitis; however, she substituted marijuana for this. She uses marijuana recreationally as a substitute "for ethanol." Stressed that we would not be writing any opiates with this history. Further complicating history for opiate use, she does use high dose benzodiazepines, currently takes Xanax 0.5 t.i.d. and Soma 350 mg t.i.d. (metabolized to meprobamate and other central acting agents with sedative effects). The patient returns to pain clinic today noting she had been admitted to the hospital on 06/12/2017 for acute exacerbation of pain, had ERCP and stent for pancreatic stone on 06/15/2017. Subsequently, hospitalized for about 6 more days, diagnosed with C. Diff. She apparently has been a C. Diff carrier in the past, currently is taking vancomycin. She returns to pain clinic noting that the bilateral L5-S1 transforaminal epidural injections we had accomplished prior visit (04/11/2017) had afforded good incremental relief of pain. She notes the pain has recurred low back radiating down the left foot with paresthesia in the foot. Pain is exacerbated with standing, riding in a car. Rates it as a 7 on VAS. She continues to smoke, though she does note that she was nicotine free during the 9 days she was in the hospital. PHYSICAL EXAMINATION: VITAL SIGNS: Shows a 36-year-old female, BMI is 38 kilograms per meter squared. Blood pressure 132/78, pulse 72, respirations 16. GENERAL: Alert and oriented to person, place and time, judged to be a reasonable historian. MUSCULOSKELETAL: Rises from chair using armrest. Diffuse abdominal pain seems to be resolving. Does have some diffuse low back pain. Gait is antalgic. Positive straight leg raise on the left. Decreased left plantar flexion [facility] [address] [place] [address] PAIN MANAGEMENT CONSULTATION Name: ELIA JEFFERSON Room #: REG JUAN Barron#: [id number] Admission: 06/20/17 Attend Phys: Francisco Keita DO Discharge: Date of : 82 Report #: [id number] strength. DIAGNOSTIC STUDIES: Including lumbar myelogram from 01/2017 notes a ventral dural defect at L4-L5 consistent with a disk herniation at this level. Mild central L5-S1 disk bulging with more focal left protrusion (L4-L5 is more right-sided). ASSESSMENT: 1. Symptomatic lumbar radiculopathy. 2. Axial back pain. 3. History of pancreatitis. RECOMMENDATION: 1. We will seek authorization for epidural injection under fluoroscopy today. 2. Continue Cymbalta 60 mg, currently taking two 30 mg tablets at bedtime. We will try taking this b.i.d. (60 mg Cymbalta in the morning caused some untoward sedation. Again, difficult to tell if this was secondary simply to the Cymbalta or to Xanax, Soma, Wellbutrin and marijuana). Discharged in good and stable condition. We will seek authorization for epidural injection (bilateral L5-S1 transforaminal injections) at next visit. <ELECTRONICALLY SIGNED> By: Francisco Keita DO 06/22/17 0752 1237 1432 Francisco Keita DO /nt
[2017-06-20 08:47] VITALS: BP 132/78
== END | disposition home or self-care (01) ==
LOC: PAIN 07:08
DX: M54.16 Radiculopathy, lumbar region (principal); M54.5 Low back pain; K85.90 Acute pancreatitis without necrosis or infection, unspecified; Z68.38 Body mass index [BMI] 38.0-38.9, adult; F17.210 Nicotine dependence, cigarettes, uncomplicated

== ENCOUNTER → 2017-06-24 | Outpatient (CLI) | payer OTHER ==
[~2017-06-24] VITALS: Ht 180.3 cm; Wt 88.2 kg
[~2017-06-24] MED LIST changes: +CYMBALTA30 MG PO
--- NOTE | ~2017-06-24 | HPC ---
[address] [place] [address] PAIN MANAGEMENT CONSULTATION Name: RONNYELIA CALLAHAN Room #: REG Lulu Luo.#: [id number] Admission: 06/24/17 Attend Phys: Francisco Keita DO Discharge: Date of : 82 Report #: [id number] THIS REPORT FOR: //name// CC: Olivia Keita PROCEDURE: Bilateral L5-S1 transforaminal epidural injection. INDICATION: Symptomatic lumbar radiculopathy. The patient was last seen on 06/20/2017. We sought authorization for aforementioned injection. Returns to pain clinic today noting pain is ongoing. Rates the pain 8/10, unchanged from last visit. She wished to proceed with bilateral L5-S1 transforaminal epidural injection as described at last visit. ASSESSMENT: Symptomatic lumbar radiculopathy. PROCEDURE #1: Left L5-S1 transforaminal epidural injection under fluoroscopy. PROCEDURE NOTE: After both written and informed consent was obtained including risk of spinal cord damage, infection, increased pain and paralysis, the patient agreed to proceed. The patient was taken to the fluoroscopy suite, placed in a prone position with appropriate abdominal bolstering. After sterile prep with ChloraPrep and sterile drape, a skin wheal with 1% Xylocaine was raised. A 22 gauge 4-1/2 inch epidural Tuohy needle was inserted. From an oblique approach into the posterior-superior aspect of the left L5-S1 neural foramen with continuous pressure on the glass syringe plunger for loss of resistance. Glass syringe was filled with 2 cc of 0.1 Xylocaine. The glass loss of resistance syringe was removed. A low volume extension tubing was connected, negative aspiration was accomplished for cerebrospinal fluid or blood. 1 mL of Omnipaque was injected which showed spread both within the epidural space and laterally along the nerve root. This was followed with 40 mg of triamcinolone plus 1 mL of 1.5% preservative-free Xylocaine. Needle was partially withdrawn, 0.5 mL of Xylocaine was injected to clear the needle and the needle was removed. The area was cleansed, band-aid was applied. The patient was allowed to ambulate to the recovery room, discharged in good and stable condition. PROCEDURE #2: Right L5-S1 transforaminal epidural injection under fluoroscopy. PROCEDURE NOTE: After both written and informed consent was obtained including risk of spinal cord damage, infection, increased pain and paralysis, the patient agreed to proceed. The patient was taken to the fluoroscopy suite, placed in a prone position with appropriate abdominal bolstering. After sterile prep with ChloraPrep and sterile drape, a skin wheal with 1% Xylocaine was raised. A 22 gauge 4-1/2 inch epidural Tuohy needle was inserted. From an oblique approach into the posterior-superior aspect of the right L5-S1 neural foramen with continuous pressure on the glass syringe plunger for loss of resistance. [address] [address] PAIN MANAGEMENT CONSULTATION Name: RONNYELIA CALLAHAN Room #: REG JUAN Barron#: [id number] Admission: 06/24/17 Attend Phys: Francisco Keita DO Discharge: Date of : 82 Report #: [id number] syringe was filled with 2 cc of 0.1 Xylocaine. The glass loss of resistance syringe was removed. A low volume extension tubing was connected, negative aspiration was accomplished for cerebrospinal fluid or blood. 1 mL of Omnipaque was injected which showed spread both within the epidural space and laterally along the nerve root. This was followed with 40 mg of triamcinolone plus 1 mL of 1.5% preservative-free Xylocaine. Needle was partially withdrawn, 0.5 mL of Xylocaine was injected to clear the needle and the needle was removed. The area was cleansed, band-aid was applied. The patient was allowed to ambulate to the recovery room, discharged in good and stable condition. The patient was monitored for an appropriate period of time, discharged in good and stable condition. Followup is p.r.n. By: 1231 [id number] Francisco Keita DO /annia
[2017-06-24 09:06] VITALS: BP 111/69
== END | disposition home or self-care (01) ==
LOC: PAIN 06:58
DX: M54.16 Radiculopathy, lumbar region (principal); F17.200 Nicotine dependence, unspecified, uncomplicated

== ENCOUNTER → 2017-09-26 | Emergency (ER) | payer OTHER ==
[~2017-09-26] VITALS: Ht 177.8 cm; Wt 86.2 kg
[~2017-09-26] MED LIST changes: +CELEBREX 200 M200 M1 PO; +CYCLOBENZAPRINE5 MG PO; +ERRIN0.35 MG PO; +FLONASE 0.05%50 MCG NASAL; +HUMULIN 70100 UNIT/3 SUBQ; +KEFLEX500 M1 PO; +LOPRESSOR25 PO; +LOPRESSOR50 PO; +PERCOCET 10-321 EACH PO; +TESSALON PERLE100 MG PO; +VITAMIN B COMP1 EACH PO
[2017-09-26 15:35] LABS: ABSOLUTE NEUTROPHILS 11.8 thou/uL (1.4-8.2); BASOPHILS 0.8 % (0.0-2.0); EOSINOPHILS 0.6 % (0.0-3.0); HEMATOCRIT 39.4 % (37.0-47.0); HEMOGLOBIN 13.4 gm/dL (12.0-15.0); LYMPHOCYTES 15.6 % (24.0-44.0); MCH 30.1 pg (26.0-34.0); MCV 88.5 fL (80.0-100.0); MONOCYTES 7.2 % (1.0-8.0); PLATELET COUNT 288 thou/uL (150-400); POLYS 75.8 % (36.0-66.0); RBC 4.45 mil/uL (4.20-5.00); RDW 14.7 % (10.5-14.5); WBC 15.6 thou/uL (4.0-11.0)
[2017-09-26 15:42] LABS: CALCIUM 8.8 mg/dL (8.5-10.1); CREATININE 0.6 mg/dL (0.6-1.0); POTASSIUM 3.2 mmol/L (3.5-5.1)
[2017-09-26 15:54] LABS: ALBUMIN 3.3 g/dL (3.4-5.0); TOTAL BILIRUBIN 0.9 mg/dL (<0.1-1.0); TOTAL PROTEIN 6.4 g/dL (6.4-8.2)
[2017-09-26 16:19] LABS: URINE BILIRUBIN NEGATIVE (Negative); URINE BLOOD NEGATIVE (Negative); URINE CLARITY CLEAR; URINE COLOR YELLOW; URINE GLUCOSE-RANDOM* 2+ (Negative); URINE KETONES 3+ (Negative); URINE LEUKOCYTES-REFLEX NEGATIVE (Negative); URINE NITRITE-REFLEX NEGATIVE (Negative); URINE PROTEIN (DIPSTICK) NEGATIVE (Negative); URINE SPECIFIC GRAVITY 1.015 (1.005-1.035); URINE UROBILINOGEN 0.2 E.U./dl (0.2-1.0)
[2017-09-26 23:53] VITALS: BP 143/69
== END ==
LOC: ER 13:51
PROVIDERS: Emergency Medicine
DX: O26.891 Other specified pregnancy related conditions, first trimester (principal); B34.9 Viral infection, unspecified; R19.7 Diarrhea, unspecified; E88.89 Other specified metabolic disorders; R11.2 Nausea with vomiting, unspecified; F17.210 Nicotine dependence, cigarettes, uncomplicated; I10 Essential (primary) hypertension; F41.9 Anxiety disorder, unspecified; F32.9 Major depressive disorder, single episode, unspecified; Z88.0 Allergy status to penicillin; Z88.5 Allergy status to narcotic agent; Z90.49 Acquired absence of other specified parts of digestive tract

== ENCOUNTER → 2017-10-07 | Outpatient (CLI) | payer OTHER ==
[~2017-10-07] VITALS: Ht 177.8 cm; Wt 90.7 kg
--- NOTE | ~2017-10-07 | HPC ---
[facility] [address] [address] PAIN MANAGEMENT CONSULTATION Name: RONNYELIA CALLAHAN Room #: REG JUAN Barron#: [id number] Admission: 10/07/17 Attend Phys: rFancisco Keita DO Discharge: Date of : 82 Report #: [id number] THIS REPORT FOR: //name// CC: Olivia Keita HISTORY OF PRESENT ILLNESS: The patient is a 37-year-old female, I had prior seen back in 07/2017, symptomatic lumbar radiculopathy and axial back pain. We trialled initiating Celebrex. I had prior done bilateral L5-S1 facet joint injections back in June with incremental relief of pain. The patient returns to pain clinic today. We have had significant interval history. I actually saw her as an inpatient at [facility] last week . She was admitted for acute exacerbation of chronic pancreatitis and abdominal pain. Concerned that she had a prior history of ethanol and marijuana use, she tells me she has quit drinking to excess and rarely smokes marijuana. She did have significant anxiety issues with an unplanned , which was terminated earlier this week. She notes the GI issues are resolving. She presents to pain clinic today complaining primarily of pain in the mid back, numbness in the left leg. She did see a neurologist who did an EMG and found lumbar compromise, though I do not have those EMG results. She does have a followup appointment with a neurosurgeon at [facility] on the [place] for consideration for definitive surgical intervention. Prior CT myelogram on 02/10/2017 showed diffuse disk bulging at L4-L5 with central and right focal disk bulging, central stenosis at L5-S1 with more left focal protrusion. Today, the patient rates pain as 7 on VAS, primarily in the back radiating down bilateral legs; exacerbated with standing, sitting in a car, weather changes. PHYSICAL EXAMINATION: Shows a 37-year-old female. BMI is 28.7 kilograms per meter squared. Blood pressure 127/66, pulse 80, respirations 16. Alert and oriented to person, place and time, judged to be a reasonable historian. Rises from chair using armrest. Diffuse tenderness across the low back. Lumbar flexion is limited. Lower extremity strength is symmetric, but positive straight leg raise bilaterally. ASSESSMENT: 1. Lumbar radiculopathy by clinical exam and history. 2. Chronic abdominal pain. 3. Complex medication managment. 4. Habituation issues, with chronic anxiety and depression as co-morbidities. RECOMMENDATIONS: 1. Epidural injection under fluoroscopy today. 2. Buccal drug swab today. The patient is currently getting oxycodone and Soma for p.r.n. use from Dr. Keith. I had suggested a short course of an opiate analgesic when the patient was an inpatient at [facility] and was discharged. [address] [address] PAIN MANAGEMENT CONSULTATION Name: RONNYELIA Room #: REG [facility] Anderson#: [id number] Admission: 10/07/17 Attend Phys: Francisco Keita DO Discharge: Date of : 82 Report #: [id number] Presently, we have elected to start the patient on Cymbalta 30 mg b.i.d., prescription was generated today for ongoing axial back pain. Epidural injection under fluoroscopy today for lumbar radicular component. Recommend continue to eschew ethanol, marijuana and nicotine due to pancreatic and abdominal pain issues. We did discuss CBD oil. The patient states that this has helped some with anxiety. Suggest she go ahead and try this. CBD oil should have cannabinoids, but no THC. We did get a buccal swab today, which I suspect will be positive for THC (the patient did state that she spent an evening with her sister who was comforting her regarding recent psychosocial events including a breakup with her long-term boyfriend and unexpected . She states she did smoke marijuana and I believe this was last week). PROCEDURE: Lumbar epidural injection under fluoroscopy. PROCEDURE NOTE: After both written and informed consent to include risk of spinal cord damage, increased pain, weakness and dural puncture, the patient was taken to the fluoroscopy suite, placed in the prone position. After sterile prep and drape, a skin wheal with lidocaine was raised. A 22-gauge epidural Tuohy needle was inserted in the midline at L4-L5 with good loss to resistance. Negative aspiration for cerebrospinal fluid or blood was noted. Then 1 mL of Omnipaque under biplanar fluoroscopy showed good spread within the epidural space. This was followed with 80 mg of triamcinolone plus 1 mL of 1.5% preservative-free Xylocaine, 0.5 mL Xylocaine was then injected to flush the needle; it was removed. The patient was monitored for an appropriate period of time and discharged in good and stable condition. Followup after neurosurgical consultation at [facility]. We may consider repeat injection if indicated clinically. <ELECTRONICALLY SIGNED> By: Francisco Keita DO 10/10/17 0816 1310 [id number] Francisco Keita DO /nt
[2017-10-07 09:46] VITALS: BP 127/66
== END | disposition home or self-care (01) ==
LOC: PAIN 06:47
DX: M54.16 Radiculopathy, lumbar region (principal); G89.29 Other chronic pain; R10.9 Unspecified abdominal pain; I10 Essential (primary) hypertension; G43.909 Migraine, unspecified, not intractable, without status migrainosus; K50.90 Crohn's disease, unspecified, without complications; K86.1 Other chronic pancreatitis; F17.210 Nicotine dependence, cigarettes, uncomplicated; F32.89 Other specified depressive episodes; F41.8 Other specified anxiety disorders; Z79.891 Long term (current) use of opiate analgesic; Z88.0 Allergy status to penicillin; Z88.6 Allergy status to analgesic agent; Z88.8 Allergy status to other drugs, medicaments and biological substances; Z98.890 Other specified postprocedural states; Z79.899 Other long term (current) drug therapy

== ENCOUNTER → 2017-11-03 | Outpatient (CLI) | payer OTHER ==
[~2017-11-03] VITALS: Ht 180.3 cm; Wt 97.5 kg
--- NOTE | ~2017-11-03 | HPC ---
[facility] [address] [address] PAIN MANAGEMENT CONSULTATION Name: ELIA JEFFERSON Room #: REG [facility] MGee.#: [id number] Admission: 11/03/17 Attend Phys: Francisco Keita DO Discharge: Date of : 82 Report #: [id number] THIS REPORT FOR: //name// CC: Olivia Keita The patient is a 37-year-old female, prior seen in the pain clinic on 10/07/2017, diagnosed with symptomatic lumbar radiculopathy, given epidural injection at that time, we started the patient on Cymbalta 30 mg b.i.d. for chronic pain concerns. We discussed CBD oil at that time. She had used marijuana recreationally for a number of years, though she has avowed to quit drinking to excess and using marijuana products this year. She returns to pain clinic today noting that the epidural injection on 10/07/2017, now nearly 4 weeks ago afforded 50% relief, but only for about 2 weeks, pain has returned to baseline. She also notes she has a new pain in the mid back, pain is exacerbated with bending, riding in a car, and sitting. Cold weather seems to exacerbate pain as well. She incidentally notes she has had significant swelling and she does look a little puffy today. She states that her weight is up 15 pounds in the last 2 weeks. Her ankles are swollen. While we did give her 80 mg of triamcinolone at last epidural, I do not think this is entirely the sole etiology. She was started on a new oral contraceptive and this too may be a culprit. Today, we talked about therapeutic options. She has ongoing pain in the SI area that interferes with function. She continues to smoke and was counseled regarding same. She tells me that she has discontinued use of marijuana products. Her random drug screen on 10/07/2017, was positive for marijuana as we had expected. The patient had had a stressful issue regarding an unwanted and had spent the evening with her sister for emotional support. She admitted that they did use marijuana at that time. She states that she has not since. PHYSICAL EXAMINATION: Otherwise unchanged, 37-year-old female, BMI is up a little at 30 kg/m2 (prior she had been running around 28.5 kg/m2). Blood pressure is stable. Alert and oriented to person, place and time, judged to be a reasonable historian. Again, she does appear to have a little "puffy" look to her face and arms. +1 pretibial edema in lower extremities. Very tender over the SI joints. Positive CANDACE test. Positive Gaenslen's. Positive pelvic distraction test. Lower extremity strength is, however, preserved. Straight leg raise is negative at this time. ASSESSMENT: Symptomatic sacroiliac joint dysfunction by clinical exam and history, history of lumbar radiculopathy relatively quiescent at present. Lumbar spondylosis, quiescent at present. 1. Symptomatic lumbar radiculopathy and axial back pain, relatively quiescent [address] [address] PAIN MANAGEMENT CONSULTATION Name: RONNYELIA Room #: REG JUAN Barron#: [id number] Admission: 11/03/17 Attend Phys: Francisco Keita DO Discharge: Date of : 82 Report #: [id number] at present. 2. Chronic pain syndrome requiring complex medication management, currently being managed appropriately by Dr. Keith. 3. Right sacroiliac joint dysfunction by clinical exam today. RECOMMENDATIONS: 1. Continue Cymbalta 30 mg b.i.d. This typically is associated with more anorexia and is not associated with lower extremity edema. 2. We talked about core stabilization exercises for SI joint dysfunction. 3. Right SI joint injection under fluoroscopy. This appears to be the primary culprit, the left side is little less involved. 4. Follow up simply as needed. PROCEDURE NOTE: After written informed consent was obtained, the patient was taken to the fluoroscopy suite, placed in prone position. After sterile prep and drape, skin wheal was raised. A 22-gauge stylet needle was placed to contact the inferior aspect of the right SI joint. Negative aspiration was accomplished. A 1 mL of Omnipaque was injected, which showed spread within the SI joint followed by 20 mg of triamcinolone plus 1 mL of 0.5% preservative-free bupivacaine. Needle was removed, the area was cleansed, Band-Aid was applied. The patient was monitored for an appropriate period of time, discharged in good and stable condition. <ELECTRONICALLY SIGNED> By: Francisco Keita DO 11/09/17 0724 0655 0908 Francisco Keita DO /nt
[2017-11-03 09:31] VITALS: BP 129/77
== END ==
LOC: PAIN 07:07
DX: M54.16 Radiculopathy, lumbar region (principal); M53.3 Sacrococcygeal disorders, not elsewhere classified; M54.5 Low back pain; K86.1 Other chronic pancreatitis; I10 Essential (primary) hypertension; G43.909 Migraine, unspecified, not intractable, without status migrainosus; K59.09 Other constipation; K85.80 Other acute pancreatitis without necrosis or infection; K50.90 Crohn's disease, unspecified, without complications; F41.9 Anxiety disorder, unspecified; F17.200 Nicotine dependence, unspecified, uncomplicated; F32.9 Major depressive disorder, single episode, unspecified; F10.20 Alcohol dependence, uncomplicated; E88.89 Other specified metabolic disorders; Z88.1 Allergy status to other antibiotic agents; Z79.899 Other long term (current) drug therapy; Z88.0 Allergy status to penicillin; Z88.8 Allergy status to other drugs, medicaments and biological substances; Z79.84 Long term (current) use of oral hypoglycemic drugs; Z79.891 Long term (current) use of opiate analgesic; Z79.1 Long term (current) use of non-steroidal anti-inflammatories (NSAID)

== ENCOUNTER → 2017-11-11 | Outpatient (CLI) | payer OTHER ==
[~2017-11-11] VITALS: Ht 177.8 cm; Wt 90.7 kg
--- NOTE | ~2017-11-11 | HPC ---
[facility] [address] [address] PAIN MANAGEMENT CONSULTATION Name: ELIA JEFFERSON Room #: REG Lulu Valerio.#: [id number] Admission: 11/11/17 Attend Phys: Francisco Keita DO Discharge: Date of : 82 Report #: [id number] THIS REPORT FOR: //name// CC: Olivia Keita DATE OF SERVICE: 11/11/2017 The patient is a pleasant 37-year-old female, prior seen in the pain clinic 11/03/2017, underwent a right SI joint injection at that time. Returns to pain clinic today noting this has been quite helpful. She notes pain had increased recently as she slipped and fell. She did have trauma to the left knee. She had 4 sutures at the suprapatellar area. This appears to be healing nicely. She notes overall, her low back pain has dramatically improved. Rises from chair easily. Gait is modestly antalgic, but this is related to the left knee. Axial back pain remains fairly nominal. There is no tenderness over the SI joints. Lumbar flexion has improved. We talked about the patient's blood glucose control. She was started on insulin and has had several issues of being a little hypoglycemic. She is working with Dr. Olivia Keith to wean her insulin dose to an appropriate level. From a pain standpoint, she is actually reasonably functional. We had briefly talked about CBD oils at last visit. She has not, I believe, trialed those yet. PHYSICAL EXAMINATION: Fairly unremarkable. At this point, she is doing well, does not require further interventional therapy. She was discharged in good and stable condition. Followup is as needed. ASSESSMENT: Symptomatic lumbar radiculopathy and sacroiliac mediated pain, was relatively quiescent at present. <ELECTRONICALLY SIGNED> By: Francisco Keita DO 11/14/17 0747 1559 1802 Francisco Keita DO /nt
[2017-11-11 14:26] VITALS: BP 113/74
== END ==
LOC: PAIN 11-10 07:04
DX: M54.16 Radiculopathy, lumbar region (principal); M53.3 Sacrococcygeal disorders, not elsewhere classified

== ENCOUNTER → 2017-11-29 | Outpatient (CLI) | payer OTHER | LOC: RAD 16:39 | DX: J18.9 Pneumonia, unspecified organism (principal); E11.9 Type 2 diabetes mellitus without complications ==

== ENCOUNTER 2017-12-19 13:56 | Emergency (ER) | payer OTHER ==
[~2017-12-19] VITALS: Ht 180.3 cm; Wt 93.0 kg
[2017-12-19 15:09] LABS: ABSOLUTE NEUTROPHILS 12.5 thou/uL (1.4-8.2); BASOPHILS 0.4 % (0.0-2.0); HEMATOCRIT 37.4 % (37.0-47.0); HEMOGLOBIN 12.6 gm/dL (12.0-15.0); LYMPHOCYTES 17.8 % (24.0-44.0); MCH 31.1 pg (26.0-34.0); MCHC 33.6 g/dL (28.0-37.0); MCV 92.7 fL (80.0-100.0); MONOCYTES 6.6 % (1.0-8.0); PLATELET COUNT 209 thou/uL (150-400); POLYS 74.2 % (36.0-66.0); RBC 4.04 mil/uL (4.20-5.00); RDW 15.4 % (10.5-14.5); WBC 16.8 thou/uL (4.0-11.0)
[2017-12-19 15:11] LABS: URINE BILIRUBIN NEGATIVE (Negative); URINE BLOOD NEGATIVE (Negative); URINE CLARITY CLEAR; URINE COLOR YELLOW; URINE GLUCOSE-RANDOM* 2+ (Negative); URINE KETONES NEGATIVE (Negative); URINE LEUKOCYTES-REFLEX NEGATIVE (Negative); URINE NITRITE-REFLEX NEGATIVE (Negative); URINE PROTEIN (DIPSTICK) NEGATIVE (Negative); URINE UROBILINOGEN 0.2 E.U./dl (0.2-1.0)
[2017-12-19 15:13] LABS: CALCIUM 8.7 mg/dL (8.5-10.1); CREATININE 0.6 mg/dL (0.6-1.0); POTASSIUM 4.1 mmol/L (3.5-5.1)
[2017-12-19 15:19] LABS: ALBUMIN 3.2 g/dL (3.4-5.0); TOTAL BILIRUBIN 0.4 mg/dL (<0.1-1.0); TOTAL PROTEIN 5.9 g/dL (6.4-8.2)
== END 2017-12-19 18:24 | disposition home or self-care (01) ==
LOC: ER 13:56
PROVIDERS: Emergency Medicine
DX: M54.17 Radiculopathy, lumbosacral region (principal); I10 Essential (primary) hypertension; K50.90 Crohn's disease, unspecified, without complications; F17.210 Nicotine dependence, cigarettes, uncomplicated; Z88.1 Allergy status to other antibiotic agents; Z88.0 Allergy status to penicillin; Z88.5 Allergy status to narcotic agent

== ENCOUNTER → 2017-12-19 | Outpatient (CLI) | payer OTHER ==
[~2017-12-19] VITALS: Ht 177.8 cm; Wt 95.4 kg
--- NOTE | ~2017-12-19 | HPC ---
[facility] [place] [address] PAIN MANAGEMENT CONSULTATION Name: ELIA JEFFERSON Room #: [facility] Valerio.#: [id number] Admission: 12/19/17 Attend Phys: Francisco Keita DO Discharge: Date of : 84 Report #: [id number] THIS REPORT FOR: //name// CC: Olivia Keita DATE OF SERVICE: 12/19/2017 The patient is a 37-year-old female, well known to the pain clinic. She has been treated for multiple pain concerns. She was last seen 12/12/2017, last Tuesday. We did a single epidural injection at L4-L5. The patient reported initially good relief with this, but noted 2 days ago her right leg gave out. She fell, does have some ecchymosis on the right leg. She is unable to raise the right leg. She has subjective paresthesia in the toes and notes a sense of urinary urgency and has had urinary incontinence. She denies bowel incontinence or specific saddle anesthesia. She rates her pain quite problematic 7-9 on a VAS. She presents to pain clinic today, 37-year-old female, BMI is 30.2 kilograms per meter squared. Blood pressure is 139/90, pulse 85, respirations are 20. She has a markedly ataxic gait favoring the right leg. Patellar reflexes are brisk, 2/4 in the right, 1-2/4 in the left. Achilles reflex is absent on the right, 1/4 in the left. Right hip flexion strength is diminished compared to the left. Lower extremity extension is significantly diminished as is dorsiflexion, about 2/5 versus 4-5/5 on the left side. Straight leg raise is nominally positive at 30 degrees on the right, though more of a "stretching" sensation than classic neural tensioning, i.e. electric type jolt. Given concern for epidural hematoma and significant weakness in the right leg really making patient unsafe to drive, after discussion with Emergency Room, we elected to transfer the patient to the ER here. I spoke to the ER physician, Dr. Ley. He evaluated the patient and concurred. MRI has been ordered. As of this dictation the patient is still in the ER, the MRI is pending. If the MRI is unremarkable, we will simply have them watch the patient overnight for pain management. I will refer to the hospitalist. If, however, there is any suggestion of blood in the epidural area, we will respectfully request that the patient be transferred to [facility] for neurosurgical evaluation. Discharged from the pain clinic, transferred to the ER. By: [id number] Francisco Keita DO /nt
[2017-12-19 12:59] VITALS: BP 139/90
== END ==
LOC: PAIN 08:52
DX: M54.16 Radiculopathy, lumbar region (principal); M79.604 Pain in right leg; R20.2 Paresthesia of skin